=== PATIENT | female | born 1960 | race Caucasian/White ===

== ENCOUNTER → 2020-10-02 | Outpatient (CLI) | payer BC | END | disposition home or self-care (01) | LOC: RAD 14:47 | PROVIDERS: ATTEND Family Medicine | DX: M15.9 Polyosteoarthritis, unspecified (principal) | CPT/HCPCS: 73523 ==

== ENCOUNTER 2021-03-17 21:54 | Inpatient (IN) | payer BC ==
[~2021-03-17] VITALS: Ht 170.2 cm; Wt 80.7 kg
[~2021-03-17 21:54] MED LIST changes: -DOXE25CA PO; -LEVO100T PO; -LEVO100T5 PO; -VENL37.52 PO
[2021-03-17] MEDS ORDERED: POLYETHYLENE GLYCOL 17 GM PACKET PO PRN (22:00)
[2021-03-17] MEDS ORDERED: ONDANSETRON ODT 4 MG PO PRN (22:00)
[2021-03-17] MEDS ORDERED: BISACODYL 10 MG SUPP PR PRN (22:00)
[2021-03-17] MEDS ORDERED: DOCUSATE 100 MG CAPSULE PO PRN (22:00)
[2021-03-17] MEDS ORDERED: TRAZODONE 50MG TABLET PO PRN (22:00)
[2021-03-17 22:21] VITALS: BP 121/85
[2021-03-18 01:06] VITALS: BP 121/85
[2021-03-18 06:10] LABS: FREE T4 (FREE THYROXINE) 0.97 ng/dL (0.76-1.46); LDL/HDL RATIO 5.3 (0.5-3.0)
[2021-03-18 07:10] VITALS: BP 108/64
[2021-03-18] MEDS ORDERED: LEVO100T5 PO (10:48)
[2021-03-18 19:13] VITALS: BP 112/77
[2021-03-18] MEDS ORDERED: DOXEPIN 25 MG CAPSULE PO SCH (21:00)
[2021-03-19 07:08] VITALS: BP 107/75
[2021-03-19] MEDS: VENLAFAXINE XR 37.5MG CAP.ER.24H PO SCH (08:44)
[2021-03-19] MEDS ORDERED: IBUPROFEN 200 MG TABLET PO PRN (16:30)
[2021-03-19 19:40] VITALS: BP_SYST 107; BP_SYST 117; BP_DIAS 74; BP_DIAS 76
[2021-03-19 19:52] VITALS: BP 107/74
[2021-03-19] MEDS: DOXEPIN 25 MG CAPSULE PO SCH (20:17)
[2021-03-20] MEDS ORDERED: CALCIUM CARBONATE 500 MG TAB.CHEW PO PRN (06:00)
[2021-03-20 08:11] VITALS: BP 93/55
[2021-03-20 08:15] VITALS: BP 113/76
[2021-03-20] MEDS: VENLAFAXINE XR 37.5MG CAP.ER.24H PO SCH (09:00)
[2021-03-20 19:30] VITALS: BP 103/70
[2021-03-20] MEDS: DOXEPIN 25 MG CAPSULE PO SCH (20:07)
[2021-03-21] MEDS ORDERED: LEVOTHYROXINE 100 MCG TABLET PO SCH (06:00)
[2021-03-21] MEDS ORDERED: LEVOTHYROXINE 88 MCG TABLET PO SCH (06:00)
[2021-03-21 07:19] VITALS: BP 105/62
[2021-03-21] MEDS: VENLAFAXINE XR 37.5MG CAP.ER.24H PO SCH (09:00)
[2021-03-21] MEDS ORDERED: VENL37.52 PO (13:12)
[2021-03-21] MEDS ORDERED: DOXE25CA PO (13:12)
[2021-03-21] MEDS ORDERED: LEVO100T PO (13:12)
== END 2021-03-21 14:00 | disposition home or self-care (01) | DRG 885 ==
LOC: 3E 22:21
PROVIDERS: ADMIT Psychiatry & Neurology Psychosomatic Medicine; ATTEND Psychiatry & Neurology Psychosomatic Medicine
DX: F33.2 Major depressive disorder, recurrent severe without psychotic features (principal); E03.9 Hypothyroidism, unspecified; F17.200 Nicotine dependence, unspecified, uncomplicated; G47.00 Insomnia, unspecified; Z91.5 Personal history of self-harm; Z88.5 Allergy status to narcotic agent; Z79.899 Other long term (current) drug therapy; Z88.6 Allergy status to analgesic agent; Z88.8 Allergy status to other drugs, medicaments and biological substances
CPT/HCPCS: 36415; 71045; 80061; 82607; 84439; 84443; 93005

== ENCOUNTER → 2021-03-17 | Emergency (ER) | payer BC ==
[~2021-03-17] MED LIST: DOXE25CA PO; LEVO100T PO; LEVO100T5 PO; QUET50TA PO; TRAZ50TA66 PO; VENL150C6 PO; VENL37.52 PO; VENL37.58 PO
--- NOTE | 2021-03-17 14:09 | NUR ---
TASK RN: [facility] FROM HOME S/P POLYPHARM OVERDOSE. UNKNOWN SUBSTANCE; TRAZODONE 50MG, EFFEXOR 150MG, SEROQUEL 50MG, VENLAFAXINE 37.5, AND UNMARKED WHITE TABLET MARKED EM 100 FOUND IN HOME. PT REPORTS HX OF SI WITH ATTEMPTS. PT ARRIVES A&OX0, DROWSY BUT ARROUSABLE TO NOXIOUS STIMULI AND INTERMITTENTLY TEARFUL. NO EVIDENICE OF EMESIS OR ASPIRATION. VSS. RESPIRATIONS EVEN AND UNLABORED. FOLLOWS SIMPLE COMMANDS. TEMP WNL. ARRIVES ON LEGAL HOLD BY [employer]. REPORT TO PRIMARY RN, BRENDA. PRESCRIPTIONS FOUND IN HOME ARE AT BEDSIDE FOR ERP. PRIMARY RN AWARE.
--- NOTE | 2021-03-17 14:13 | NUR ---
REPORT FROM RABIA LEIVA
--- NOTE | 2021-03-17 14:25 | NUR ---
PT STATES SHE "WANTED TO GO TO SLEEP AND NOT WAKE UP", STATES "I STILL DON'T." PT AXOX4. SITTER IN VIEW, ASPIRATION PRECAUTIONS IN PLACE.
--- NOTE | 2021-03-17 14:30 | NUR ---
PSYCH COUNTER SERVER AT BS
[2021-03-17 14:52] LABS: MEAN CORPUSCULAR HEMOGLOBIN 30.5 pg (27.0-34.8); MEAN CORPUSCULAR HGB CONC 34.2 g/dL (32.4-35.8); MEAN PLATELET VOLUME 8.2 fL (7.4-10.4); PLATELET COUNT 212 x10^3/uL (130-400)
[2021-03-17 14:59] LABS: ALANINE AMINOTRANSFERASE 59 U/L (12-78); ALBUMIN 3.6 g/dL (3.4-5.0); ANION GAP 6 mmol/L (5-15); CHLORIDE 110 mmol/L (98-107); CREATININE 0.84 mg/dL (0.55-1.02); SALICYLATE LEVEL 5.2 mg/dL (2.8-20.0)
[2021-03-17 15:01] LABS: ALKALINE PHOSPHATASE 96 U/L (45-117); BILIRUBIN,TOTAL 0.5 mg/dL (0.2-1.0); TOTAL PROTEIN 7.7 g/dL (6.4-8.2)
[2021-03-17 15:33] LABS: BASOS#(MANUAL) 0.07 x10^3/uL (0-0.1); BASOS% (MANUAL) 1 % (0-1); EOS#(MANUAL) 0.22 x10^3/uL (0.0-0.4); EOS% (MANUAL) 3 % (1-7); LYMPH#(MANUAL) 3.26 x10^3/uL (1-3.4); LYMPHS% (MANUAL) 44 % (22-44); MONOS% (MANUAL) 4 % (2-9); REACTIVE LYMPHS # (MANUAL) 0.44 x10^3/uL (0-0); REACTIVE LYMPHS % (MANUAL) 6 % (0-0); SEG#(MANUAL) 3.11 x10^3/uL (1.8-6.8); SEGS% (MANUAL) 42 % (42-75)
[2021-03-17 15:34] LABS: <PLATELET ESTIMATE> ADEQUATE; <PLT MORPHOLOGY> NORMAL PLT MORPH; <RBC MORPHOLOGY> NORMAL
--- NOTE | 2021-03-17 18:14 | NUR ---
This RN assumed care at approx 1630. At this time pt was arousable to verbal stimuli and oriented to self and situation. States need to pee but unable with purewick. Pt is now A&Ox4, awake. Pt is crying stating her soul is broken and she wants the pain to end.
[2021-03-17 18:45] LABS: MICROSCOPIC INDICATED
[2021-03-17 18:57] LABS: AMPHETAMINE SCREEN, URINE Negative (Negative); BARBITURATE SCREEN, URINE Negative (Negative); BENZODIAZEPINE SCREEN, URINE Positive (Negative); CANNABINOID SCREEN, URINE Negative (Negative); COCAINE SCREEN, URINE Negative (Negative); METHADONE SCREEN, URINE Negative (Negative); OPIATE SCREEN, URINE Negative (Negative)
--- NOTE | 2021-03-17 19:06 | NUR ---
Bedside report to RABIA Jaimes, to assume full care. Pt remains connected to all monitors, sleeping with eyes closed and resps even and unlabored. Lights off to promote rest. Pt in view of sitter.
[2021-03-17 19:48] VITALS: BP 112/76
--- NOTE | 2021-03-17 19:50 | NUR ---
PT IS SLEEPING IN BED ANSWERING QUESTIONS APPROPRIATELY. JUST WOKE UP FROM SLEEPING, VSS. DISCONNECTED FROM MONITORS DUE TO STABLE VITALS AND A&OX4. BREATHING EVEN AND UNLABORED. GARAGE DOORS SECURED FOR SAFETY. SITTER OUTSIDE ROOM FOR SAFTEY MONITORING. BELONGING SECURED IN LOCKER. PT APPEARS SLIGHTLY DROWSY FROM WAKING UP FROM SLEEP. BED IN LOW POSITION, RAILS ENGAGED. PT APPEARS COMFORTABLE IN BED WCTM.
--- NOTE | 2021-03-17 20:22 | NUR ---
LATE ENTRY. BEDSIDE REPORT FROM SPRECKEL[facility] AT SHIFT CHANGE.
--- NOTE | 2021-03-17 21:02 | NUR ---
Patient is resting comfortably in bed. Bed in lowest, rails engaged, call light on lap. Vital Signs within normal limits. WCTM. PT TOLERATED COVID TEST WELL.
--- NOTE | 2021-03-17 21:45 | NUR ---
GAVE REPORT TO MONCHO CAMARILLO [facility]
--- NOTE | 2021-03-17 21:56 | NUR ---
PERSONAL BELONGING SHEET FILLED OUT AND SIGNED BY PT AND OUT INTO PT'S CHART. PT GIVEN HER OWN COPY WELL. 1 BLUE SHIRT ND 1 WHITE BRA. PT RESTING IN BED. NADN. PLASCENCIA
== END ==
LOC: ED 16:09 → EDIP 16:10 → UNDOADMOB 16:10 → ED 16:30
DX: T43.011A Poisoning by tricyclic antidepressants, accidental (unintentional), initial encounter (principal); F33.1 Major depressive disorder, recurrent, moderate; R45.851 Suicidal ideations; R94.31 Abnormal electrocardiogram [ECG] [EKG]; Z20.822 Contact with and (suspected) exposure to COVID-19
CPT/HCPCS: 36415; 80053; 80299; 80307; 80320; 80329; 81001; 85025; 87635; 93005; 99285; G0480